=== PATIENT | female | born 1985 | race Caucasian/White ===

== ENCOUNTER → 2017-02-04 | Outpatient (CLI) | payer OTHER ==
[2017-02-04 13:06] LABS: HEMOGLOBIN 12.4 g/dL (11.7-16.4); WHITE BLOOD COUNT 6.4 x10^3/uL (3.4-10)
== END | disposition home or self-care (01) ==
LOC: CFH 10:46
PROVIDERS: ATTEND Registered Nurse
DX: Z34.82 Encounter for supervision of other normal pregnancy, second trimester (principal)
CPT/HCPCS: 36415; 82950; 85025; 87086

== ENCOUNTER 2017-04-20 07:43 | Inpatient (IN) | payer OTHER ==
[~2017-04-20] VITALS: Ht 157.5 cm; Wt 72.7 kg
[2017-04-20] MEDS ORDERED: OXYTOCIN 30U/ 0.9% NaCL 500ML 500 ML IV ONE (08:15)
[2017-04-20 08:21] VITALS: BP 122/77
[2017-04-20] MEDS ORDERED: MISOPROSTOL 200 MCG TABLET ONE (08:29)
[2017-04-20] MEDS ORDERED: NEWBORN KIT ONE (08:29)
[2017-04-20] MEDS ORDERED: LIDOCAINE 1%, 20ML ONE (08:29)
[2017-04-20] MEDS ORDERED: OXYTOCIN 30U/ 0.9% NaCL 500ML 500 ML ONE ×2 (08:29→09:36)
[2017-04-20] MEDS ORDERED: FENTANYL PF 100 MCG/2ML IVPush PRN (08:30)
[2017-04-20] MEDS ORDERED: ONDANSETRON 2MG/ML, 2ML IVPush PRN (08:30)
[2017-04-20] MEDS ORDERED: FENTANYL PF 100 MCG/2ML IV PRN (08:30)
[2017-04-20] MEDS ORDERED: LACTATED RINGERS 1,000 ML IV SCH (08:35)
[2017-04-20 08:40] LABS: HEMATOCRIT 39.6 % (34.6-47.8); HEMOGLOBIN 13.7 g/dL (11.7-16.4); WHITE BLOOD COUNT 14.3 x10^3/uL (3.4-10)
[2017-04-20] MEDS: PLEASE ENTER ALLERGIES MC SCH ×4 (09:00→17:00)
[2017-04-20] MEDS ORDERED: OXYTOCIN 30U/ 0.9% NaCL 500ML 500 ML IV SCH (09:25)
[2017-04-20] MEDS: OXYTOCIN 30U/ 0.9% NaCL 500ML 500 ML IV SCH ×7 (09:25→18:01)
[2017-04-20] MEDS ORDERED: ACETAMINOPHEN 325 MG TABLET PO PRN ×3 (09:30)
[2017-04-20] MEDS ORDERED: MAGNESIUM HYDROXIDE 8%, 30ML UDC PO PRN (09:30)
[2017-04-20] MEDS ORDERED: DOCUSATE 100 MG CAPSULE PO PRN (09:30)
[2017-04-20] MEDS ORDERED: METHYLERGONOVINE 0.2 MG/ML IM PRN (09:30)
[2017-04-20] MEDS ORDERED: ONDANSETRON 2MG/ML, 2ML IV PRN (09:30)
[2017-04-20] MEDS ORDERED: OXYTOCIN 10 UNITS/ML, 1ML IM PRN (09:30)
[2017-04-20] MEDS ORDERED: MISOPROSTOL 200 MCG TABLET SL PRN (09:30)
[2017-04-20] MEDS ORDERED: IBUPROFEN 800 MG TABLET PO PRN ×2 (09:30→17:30)
[2017-04-20] MEDS ORDERED: CALCIUM CARBONATE 500 MG TAB.CHEW PO PRN (09:30)
[2017-04-20] MEDS ORDERED: OXYcodone/APAP 5/325MG TABLET PO PRN (09:30)
[2017-04-20] MEDS ORDERED: OXYcodone IR 5MG TABLET PO PRN (09:30)
[2017-04-20] MEDS ORDERED: IBUPROFEN 600 MG TABLET ONE (10:03)
[2017-04-20 11:30] VITALS: BP 116/76
[2017-04-20] MEDS ORDERED: PLEASE ENTER ALLERGIES MC SCH ×4 (12:30→18:30)
[2017-04-20 16:00] VITALS: BP 112/72
[2017-04-20 17:35] LABS: HEMATOCRIT 35.8 % (34.6-47.8); HEMOGLOBIN 12.2 g/dL (11.7-16.4); WHITE BLOOD COUNT 15.1 x10^3/uL (3.4-10)
[2017-04-20 19:10] VITALS: BP 122/80
[2017-04-21 03:05] VITALS: BP 122/78
[2017-04-21 07:00] VITALS: BP 123/81
[2017-04-21] MEDS: PRENATAL VIT/IRON/FA 1 EACH TABLET PO SCH (08:09)
[2017-04-21 19:30] VITALS: BP 121/80
[2017-04-22] MEDS ORDERED: OXYC-302 PO (03:40)
[2017-04-22] MEDS ORDERED: IBUP-1222 PO (03:41)
[2017-04-22 07:30] VITALS: BP 120/74
[2017-04-22] MEDS: PRENATAL VIT/IRON/FA 1 EACH TABLET PO SCH (09:00)
== END 2017-04-23 03:05 | disposition home or self-care (01) | DRG 775 ==
LOC: LDOP 07:43 → LDIP 08:33 → 2NW 11:21
PROVIDERS: ADMIT Obstetrics & Gynecology; ATTEND Obstetrics & Gynecology
PROC: 10E0XZZ Delivery of Products of Conception, External Approach (ICD-10-PCS; principal; 2017-04-21)
DX: O80 Encounter for full-term uncomplicated delivery (principal); Z37.0 Single live birth; Z3A.33 33 weeks gestation of pregnancy
CPT/HCPCS: 36415; 85025; 86850; 86900; J2590; J7120